=== PATIENT | female | born 1965 | race Caucasian/White ===

== ENCOUNTER 2021-08-28 18:04 | Outpatient (REF) | payer OTHER, SELFPAY ==
[2021-08-28 20:59] LABS: HCT 39.3 % (36.0-46.0); HGB 12.6 g/dL (11.2-15.7); MCH 28.3 pg (27.0-33.0); MCHC 32.1 % (32.0-36.0); MCV 88.3 fL (80-95); MPV 9.9 fL (8.0-11.0); Platelet Count 238 10^3/uL (130-400); RBC 4.45 10^6/uL (3.93-5.22); RDW 13.8 % (11.7-14.6); RDW-SD 45.1 fL; WBC 7.37 10^3/uL (4.4-10.8)
[2021-08-28 21:38] LABS: ALT 45 U/L (14-59); AST 30 U/L (15-37); Albumin 3.8 g/dL (3.4-5.0); Alkaline Phosphatase 105 U/L (46-116); Anion Gap 9.3 mmol/L (3-11); BUN 11 mg/dL (7-18); Bilirubin, Total 0.3 mg/dL (0.2-1.0); CO2 29.7 mmol/L (21.0-32.0); CREATININE 0.7 mg/dL (0.55-1.02); Calcium 9.7 mg/dL (8.5-10.1); Calculated LDL 95 mg/dL (<100); Chloride 101 mmol/L (98-107); Cholesterol 195 mg/dL (<200); Glucose 94 mg/dL (74-106); HDL Cholesterol 52 mg/dL (40-60); Potassium 4.6 mmol/L (3.5-5.1); Sodium 140 mmol/L (136-145); TSH 2.25 uIU/mL (0.36-3.74); Total Protein 7.4 g/dL (6.4-8.2); Triglyceride 244 mg/dL (<150)
== END 2021-08-28 18:05 | disposition home or self-care (01) ==
LOC: NCHCN 18:04
PROVIDERS: PCP Nurse Practitioner Family; Visit Provider Nurse Practitioner Family
DX: Z00.00 Encounter for general adult medical examination without abnormal findings (principal); Z13.220 Encounter for screening for lipoid disorders; Z13.29 Encounter for screening for other suspected endocrine disorder; F43.21 Adjustment disorder with depressed mood
CPT/HCPCS: 80053; 80061; 85027; 84443

== ENCOUNTER 2022-05-10 10:32 | Outpatient (REF) | payer OTHER, SELFPAY ==
--- NOTE | 2022-05-10 08:30 | PAPFT_PTH ---
PATIENT: Екатерина Lu LOC: [facility]#:[id number] AGE/SX: 57/F ROOM: RE05/10/[address]: Iesha Wei : 1965 BED: DIS: 05/10/2022 SPEC #: [id number] RECD: 05/10/22 16:58 STATUS: HEIDI REQ #: [id number] JACKSON: 05/10/22 08:[address]: Iesha Quinonez DEPT: [facility] Cytology RECD BY: Stephanie Duncan ENTERED: 05/10/22 16:59 SP TYPE: PAPFT OTHR DR: Bertha Wesley Tissues: 1 - CX/ENDOCX FOR PAP SMEARS Procedures: PAP THIN PREP/[facility] Screening HPV DNA PROBE Comments: [id number]
== END 2022-05-10 10:33 | disposition home or self-care (01) ==
LOC: NCHCN 10:32
PROVIDERS: PCP Nurse Practitioner Family; Visit Provider Nurse Practitioner Family
DX: Z12.4 Encounter for screening for malignant neoplasm of cervix (principal); Z11.51 Encounter for screening for human papillomavirus (HPV)
CPT/HCPCS: 88142; 87624

== ENCOUNTER 2024-08-24 13:12 | Outpatient (REF) | payer OTHER, SELFPAY ==
[2024-08-24 15:20] LABS: HCT 43.3 % (36.0-46.0); HGB 13.6 g/dL (11.2-15.7); MCH 27.8 pg (27.0-33.0); MCHC 31.4 % (32.0-36.0); MCV 88 fL (80-95); MPV 10.1 fL (8.0-11.0); Platelet Count 269 10^3/uL (130-400); RDW 13.1 % (11.7-14.6); RDW-SD 42.2 fL; WBC 10.43 10^3/uL (4.4-10.8)
[2024-08-24 15:45] LABS: Hemoglobin A1C 5.8 % (<5.7)
[2024-08-24 16:12] LABS: ALT 45 U/L (14-59); AST 29 U/L (15-37); Albumin 3.8 g/dL (3.4-5.0); Alkaline Phosphatase 116 U/L (46-116); Anion Gap 7.1 mmol/L (3-11); BUN 15 mg/dL (7-18); Bilirubin, Total 0.4 mg/dL (0.2-1.0); CO2 28.9 mmol/L (21.0-32.0); CREATININE 0.7 mg/dL (0.55-1.02); Calcium 9.7 mg/dL (8.5-10.1); Calculated LDL 110 mg/dL (<100); Chloride 108 mmol/L (98-107); Cholesterol 195 mg/dL (<200); Estimated GFR 100.81 (mL/min/1.73m2); Glucose 99 mg/dL (74-106); HDL Cholesterol 55 mg/dL (>or=50); Potassium 4.5 mmol/L (3.5-5.1); Sodium 144 mmol/L (136-145); TSH 3.15 uIU/mL (0.36-3.74); Total Protein 7.9 g/dL (6.4-8.2); Triglyceride 153 mg/dL (<150)
[2024-08-25 10:11] LABS: HIV-1/2 Ag & Ab Screen Negative (Negative)
[2024-08-25 11:14] LABS: Hepatitis C Ab w Rflx HCV PCR Negative (Negative)
== END 2024-08-24 13:13 | disposition home or self-care (01) ==
LOC: NCHCN 13:12
PROVIDERS: PCP Nurse Practitioner Family; Visit Provider Nurse Practitioner Family
DX: E66.9 Obesity, unspecified (principal); Z11.3 Encounter for screening for infections with a predominantly sexual mode of transmission; Z13.0 Encounter for screening for diseases of the blood and blood-forming organs and certain disorders involving the immune mechanism
CPT/HCPCS: 80053; 80061; 85027; 86803; 87389; 83036; 84443